=== PATIENT | female | born 1990 | race Caucasian/White ===

== ENCOUNTER 2017-02-12 16:14 | Outpatient (CLI) | payer MEDICAID, OTHER ==
[~2017-02-12] VITALS: Ht 160 cm; Wt 76.5 kg
[2017-02-12 16:31] VITALS: Ht 160 cm; Wt 76.5 kg
[2017-02-12 16:32] VITALS: BP 115/74; PULSE 93; RESP 20
[2017-02-12] MEDS ORDERED: PRENAT PO (16:37)
[2017-02-12] MEDS ORDERED: FERR236T PO (16:38)
--- NOTE | 2017-02-12 17:44 | RADRPT ---
PROCEDURE: US OB biophysical profile. CLINICAL INDICATION: decreased movements, vaginal bleeding TECHNIQUE: Multiple sonographic images of the pelvis were obtained. The images were reviewed on a PACS workstation. COMPARISON: No prior studies are available for comparison. FINDINGS: There is a single viable intrauterine gestation. Cardiac activity is present with 168 beats per min ak chin. There is a vertex presentation. The placenta is fundal. There is no evidence of placental abruption. There is a normal amount of amniotic fluid with an PHILIPP = 15.8 cm. Biophysical profile: movement 2/2 tone 2/2. breathing 2/2 PHILIPP 2/2 Total 04/24 RPTAT: AA . IMPRESSION: Normal biophysical profile. . .Aguilar Dawn MD, Date Time Electronically viewed and signed by .Aguilar Dawn MD, MD on 02/12/2017 17:44 .S/
--- NOTE | 2017-02-12 17:44 | PN ---
Date/Time of Note Date/Time of Note DATE: 02/12/17 TIME: 17:42 OB Subjective Subjective Subjective Patient is a 26-year-old 1 para 0 at 37+4 weeks of gestation who presents with contractions She does not report any leaking fluid, no vaginal bleeding, positive movement She has had her care with [facility] OB Objective HEENT: WNL Heart: Rhythm Normal Lungs: Clear, Equal Abdomen: WNL Extremities: Normal Reflexes: Normal Cervical Dilatation: 2cm Effacement: 75% Station: -2 Membranes: Intact Heart Rate: 140's Accelerations: Accelerations Present Decelerations: No Decelerations Varibility: Moderate Contractions on Admission: >10 Minutes Apart OB Assessment/Plan Other Assessment: 37+4 weeks of gestation rule out labor Other plan: Patient is in latent phase of labor She was counseled to return if contractions are every 3-5 minutes, positive leaking fluid, positive vaginal bleeding or no movement TOM OJEDA MD February 12, 2017 17:44
--- NOTE | 2017-02-12 18:42 | TRIAGE ---
OB Triage Datetime Report Generated by CPN: 02/12/2017 18:42 Datetime: 02/12/2017 16:50 Time of Arrival: 10/15/2016 16:13 EGA: 20.3 Arrived By: Wheelchair Arrived From: Home Chief Complaint: uc's since noon, Movement: Present Contractions: Regular Time Contractions Began: 02/12/2017 12:00 Contractions: "q5" Rupture of Membranes: Denies Vaginal Bleeding: Normal Show; Dark Red Vaginal Discharge: Denies Recent Sexual Intercouse: Denies Abdominal Trauma: Not Applicable Patient Complaints: Contractions Additional Patient Complaints: getting over UTI and finishing up antibiotics presently Time Provider Notified: 02/12/2017 16:45 Provider Notified: laborist Datetime: 02/12/2017 16:41 Stage of : OB Triage Assessment Type: Triage Maternal Assessment Level of Consciousness: Fully Conscious DTR's/Clonus: DTRs 2+; No Clonus Headache: Denies Blurred Vision: No Respiratory Effort: Unlabored; Regular Rhythm; Equal Expansion Breath Sounds, Left: Clear and Equal Breath Sounds, Right: Clear and Equal Nausea/Vomiting: Denies RUQ Epigastric Pain: Denies Lower Extremities Edema: None Upper Extremities Edema: None Facial Edema: None Temperature Route: Axillary Fall Risk Assessment History of Falling: (0) No Secondary Diagnosis: (0) No Ambulatory Aid: (0) Bedrest/Nurse Assist IV Therapy: (0) No Gait: (0) Normal/Bedrest/Immobile Mental Status: (0) Oriented to Own Ability Fall Score: 0 Fall Risk Score Definition: No Risk: No action required Labor Evaluation Monitor Mode: External Resting Tone [place]: Relaxed Contraction Comments: just put on monitor Heart Rate FHR Baseline Rate: 140 Monitor Mode: External US Comments: just put on monitor Pain Assessment Pain Scale: 6 Pain Presence: Intermittent Pain Type: Cramping Pain Location: Abdomen Pain Goal: 3 Pain Relief Measures: Comfort Measures Vaginal Exam Dilatation (cms): 2.0 Effacement (%): 70 Station: -2 Exam By: ami hilton rn Membrane Status: Intact Vaginal Bleeding: old blood noted with exam, pt getting antibiotics presently for a UTI two weeks ago.
== END 2017-02-12 18:40 | disposition home or self-care (01) ==
LOC: OBT 16:14 → L-D 16:15 → OBT 18:40
PROVIDERS: ATTEND Obstetrics & Gynecology
DX: O62.8 Other abnormalities of forces of labor (principal); Z3A.37 37 weeks gestation of pregnancy
CPT/HCPCS: 76818; Z7500; G0463

== ENCOUNTER 2017-02-12 23:39 | Inpatient (IN) | payer OTHER ==
[~2017-02-12] VITALS: Ht 160 cm; Wt 80.0 kg
[~2017-02-12 23:39] MED LIST: FERR236T PO; PRENAT PO
[2017-02-13 00:04] VITALS: BP 137/91; PULSE 82
[2017-02-13 00:36] VITALS: Ht 160 cm; Wt 80.0 kg
[2017-02-13] MEDS: LACTATED RINGER'S 1,000 ML IV SCH ×3 (00:57→16:32)
[2017-02-13 01:00] LABS: ADD SCAN DIFF NO
[2017-02-13] MEDS ORDERED: BUTORPHANOL 2 MG INJ IV PRN (01:00)
[2017-02-13] MEDS ORDERED: AMPICILLIN 2 GM/NS (PMX) 100 ML IV ONE (01:00)
[2017-02-13] MEDS ORDERED: OXYTOCIN 30 UNITS/LR 500 ML IV SCH ×2 (01:00)
[2017-02-13] MEDS ORDERED: CARBOPROST 250 MCG INJ IM PRN ×2 (01:00→02:30)
[2017-02-13] MEDS ORDERED: MISOPROSTOL 200 MCG TAB PR PRN ×2 (01:00→02:30)
[2017-02-13] MEDS ORDERED: LACTATED RINGER'S 1,000 ML IV PRN (01:00)
[2017-02-13] MEDS ORDERED: LIDOCAINE 1% (MPF) 30 ML INJ INJ PRN (01:00)
[2017-02-13] MEDS ORDERED: METHYLERGONOVINE 0.2 MG INJ IM PRN ×2 (01:00→02:30)
[2017-02-13] MEDS ORDERED: OXYTOCIN 30 UNITS/LR 500 ML IV PRN ×2 (01:00→02:30)
[2017-02-13 01:01] LABS: BASOPHILS % 0.2 % (0.0-2.0); EOSINOPHILS % 0.2 % (0.0-7.0); HEMATOCRIT 39.5 % (37.0-47.0); HEMOGLOBIN 13.3 g/dl (12.0-16.0); LYMPHOCYTES # 0.9 10^3/ul (0.8-2.9); LYMPHOCYTES % 7.1 % (15.0-51.0); MEAN CORPUSCULAR HEMOGLOBIN 30.6 pg (29.0-33.0); MEAN CORPUSCULAR HGB CONC 33.7 g/dl (32.0-37.0); MEAN PLATELET VOLUME 10.1 fl (7.4-10.4); MONOCYTE # 0.5 10^3/ul (0.3-0.9); MONOCYTES % 4.1 % (0.0-11.0); NEUTROPHIL # 11.2 10^3/ul (1.6-7.5); NEUTROPHILS % 88.1 % (39.0-77.0); PLATELET COUNT 339 10^3/UL (140-415); RED BLOOD COUNT 4.34 10^6/ul (4.20-5.40); RED CELL DISTRIBUTION WIDTH 13.2 % (11.5-14.5); WHITE BLOOD COUNT 12.7 10^3/ul (4.8-10.8)
[2017-02-13 01:32] LABS: INR 0.87; PROTIME 11.8 Sec (12.2-14.2); PT RATIO 0.9
[2017-02-13 01:49] LABS: ALBUMIN 3.5 g/dl (3.3-4.9); ALBUMIN/GLOBULIN RATIO 0.83; BILIRUBIN,INDIRECT 0.2 mg/dl (0-1.1); BILIRUBIN,TOTAL 0.2 mg/dl (0.2-1.3); CALCIUM 9.5 mg/dl (8.4-10.2); CREATININE 0.49 mg/dl (0.44-1.00); POTASSIUM 3.9 mmol/L (3.5-5.1); TOTAL PROTEIN 7.7 g/dl (6.1-8.1); URIC ACID 4.1 mg/dl (3.1-7.9)
[2017-02-13] MEDS: LACTATED RINGER'S 1,000 ML IV* SCH ×3 (02:13→18:13)
--- NOTE | 2017-02-13 02:13 | LDN ---
Date/Time of Note Date/Time of Note DATE: 02/13/17 TIME: 02:06 Delivery Summary 1 para 0 at 37+5 weeks of gestation presents fully dilated with bulging bag Weeks of Gestation 37+5 weeks of gestation Baby's weight 3030 g/6 lbs. 11 oz. Estimated blood loss 500 cc Patient received 1000 mcg of Cytotec per rectum Placenta Delivered: Spontaneously Anesthesia type: Local Estimated blood loss: 500 Sponge & Needle done & correct: Yes All needle counts correct: Yes Any foreign bodies felt in the: No Problems: Delivery Information Sex Sex: female Apgars 1 Minute: 9 5 Minute: 9 Suctioning Nose & mouth suctioned at kait: Yes Umbilical Cord Umbilical cord with: 3 Vessels Cord presentations: no nuchal cord Cord Blood was obtained: Yes TOM OJEDA MD February 13, 2017 02:13
--- NOTE | 2017-02-13 02:20 | HP ---
Date/Time of Note Date/Time of Note DATE: 02/13/17 TIME: 02:17 OB - History Hx of Present Free Text/Dictation Patient is a 26-year-old 1 para 0 at 37+5 weeks of gestation who presents fully dilated with bulging membranes Patient received care at [facility] : 1 Para: 0 Past Family/Social History * Past Medical, Surgical, Family and Obstetric Histories reviewed from chart. OB Admission Exam Vital Signs Vital Signs Vital Signs Date Time Temp Pulse Resp B/P Pulse Ox O2 Delivery O2 Flow Rate FiO2 02/13/17 00:04 98.3 82 137/91 Room Air Physical Exam HEENT: WNL Heart: Rhythm Normal Lungs: Clear, Equal Abdomen: WNL Extremities: Normal Reflexes: Normal Cervical Dilatation: 10cm Effacement: 100% Station: 0 Amniotic Fluid: Clear Heart Rate: 140's Accelerations: Accelerations Present Decelerations: No Decelerations Varibility: Moderate Contractions on Admission: < 5 Minutes Apart Last 72 hours Lab Results CBC & BMP 02/13/17 00:35 Liver Function Test 02/13/17 00:35 Alanine Aminotransferase (ALT/SGPT) 38 Albumin 3.5 Alkaline Phosphatase 220 H Aspartate Amino Transf (AST/SGOT) 24 Direct Bilirubin 0.00 Total Protein 7.7 OB Assessment/Plan Reason for admission: active labor Other plan: Admit to labor and delivery IV fluids Antibiotics prophylaxis Anticipate normal spontaneous vaginal delivery TOM OJEDA MD February 13, 2017 02:20
[2017-02-13] MEDS ORDERED: WITCH HAZEL/GLYCERIN PAD PR PRN (02:30)
[2017-02-13] MEDS ORDERED: ACETAMINOPHEN 325 MG TAB PO PRN (02:30)
[2017-02-13] MEDS ORDERED: LANOLIN 7 GM TUBE TOP PRN (02:30)
[2017-02-13] MEDS ORDERED: ONDANSETRON 4 MG INJ IV PRN (02:30)
[2017-02-13] MEDS ORDERED: DIBUCAINE 1% 30 GM OINT PR PRN (02:30)
[2017-02-13] MEDS ORDERED: BENZOCAINE 20% 56 ML SPRAY TOP PRN (02:30)
[2017-02-13 03:30] VITALS: BP 118/63; PULSE 89; RESP 19
[2017-02-13 05:01] VITALS: BP 109/70; PULSE 75; RESP 20
[2017-02-13] MEDS: IBUPROFEN 600 MG TAB PO PRN ×3 (06:13→21:33)
[2017-02-13] MEDS: OXYTOCIN 30 UNITS/LR 500 ML IV SCH ×2 (06:13→06:15)
[2017-02-13 07:04] LABS: ADD SCAN DIFF NO
[2017-02-13 07:07] LABS: BASOPHILS % 0.1 % (0.0-2.0); HEMOGLOBIN 11.4 g/dl (12.0-16.0); LYMPHOCYTES # 0.8 10^3/ul (0.8-2.9); LYMPHOCYTES % 5.1 % (15.0-51.0); MEAN CORPUSCULAR HEMOGLOBIN 30.6 pg (29.0-33.0); MEAN CORPUSCULAR HGB CONC 33.5 g/dl (32.0-37.0); MEAN CORPUSCULAR VOLUME 91.4 fl (82.0-101.0); MONOCYTE # 0.6 10^3/ul (0.3-0.9); MONOCYTES % 3.8 % (0.0-11.0); NEUTROPHIL # 14.2 10^3/ul (1.6-7.5); NEUTROPHILS % 90.6 % (39.0-77.0); PLATELET COUNT 279 10^3/UL (140-415); RED BLOOD COUNT 3.72 10^6/ul (4.20-5.40); RED CELL DISTRIBUTION WIDTH 13.3 % (11.5-14.5); WHITE BLOOD COUNT 15.7 10^3/ul (4.8-10.8)
[2017-02-13 07:45] VITALS: BP 98/52; PULSE 86; RESP 18
[2017-02-13] MEDS: SENNA/DOCUSATE NA (8.6MG/50MG) TAB PO SCH ×2 (08:48→21:33)
[2017-02-13] MEDS: MAGNESIUM HYDROXIDE 30ML CUP PO SCH ×2 (08:48→21:33)
[2017-02-13 16:00] VITALS: BP 102/67; PULSE 75; RESP 18
[2017-02-13 19:45] VITALS: BP 108/68; PULSE 79; RESP 17
[2017-02-14] VITALS (7 sets, daily range): BP systolic 97–102; BP diastolic 52–65; PULSE 62–91; RESP 18–20
[2017-02-14] MEDS: IBUPROFEN 600 MG TAB PO PRN ×3 (05:30→23:35)
[2017-02-14] MEDS: SENNA/DOCUSATE NA (8.6MG/50MG) TAB PO SCH ×2 (09:02→20:31)
[2017-02-14] MEDS: MAGNESIUM HYDROXIDE 30ML CUP PO SCH ×2 (09:02→20:31)
--- NOTE | 2017-02-14 16:56 | PN ---
Date/Time of Note Date/Time of Note DATE: 02/14/17 TIME: 16:55 OB Subjective Subjective Subjective Post normal vaginal delivery day 1 Afebrile VSs stable abdomen soft uterus firm lochia normal extremity normal ambulation encouraged Current Medications Medications (Trade) Dose Ordered Sig/Muna Route PRN Reason Start Time Stop Time Status Last Admin Dose Admin Lactated Ringer's 1,000 ml @ 125 mls/hr Q8H IV 02/13/17 00:32 02/13/17 23:32 DC 02/13/17 00:57 Ampicillin (Ampicillin 2 Gm/ NS (Pmx)) 100 ml @ 100 mls/hr ONCE ONCE IV 02/13/17 01:00 02/13/17 10:22 DC 02/13/17 00:57 Butorphanol Tartrate (Stadol) 2 mg Q2H PRN IV PAIN 02/13/17 01:00 Lidocaine 30 ml 30 ml ONCE PRN INJ EPISIOTOMY/TEARING 02/13/17 01:00 Oxytocin/Lactated Ringer's 500 ml @ 125 mls/hr ONCE -MAY REPEAT X1 IV 02/13/17 01:00 02/13/17 23:42 DC Oxytocin/Lactated Ringer's 500 ml @ 125 mls/hr ONCE IV 02/13/17 01:00 02/13/17 23:43 DC 02/13/17 02:05 Ibuprofen 600 mg 600 mg ONCE PRN PO Mild Pain (Pain Score 1-3) 02/13/17 01:00 02/14/17 11:55 Lactated Ringer's 1,000 ml @ 2,000 mls/hr Q30M PRN IV PRE-EPIDURAL BOLUS 02/13/17 01:00 02/13/17 10:22 DC Oxytocin/Lactated Ringer's 500 ml @ 0 mls/hr ONCE PRN IV For Hemorrhage Management 02/13/17 01:00 02/13/17 01:25 Methylergonovine Maleate (Methergine) 0.2 mg ONCE PRN IM VAGINAL BLEEDING 02/13/17 01:00 02/13/17 03:32 Carboprost Tromethamine (Hemabate) 250 mcg ONCE PRN IM VAGINAL BLEEDING 02/13/17 01:00 Misoprostol 1000 mcg 1,[address] VAGINAL BLEEDING 02/13/17 01:00 02/13/17 01:24 Oxytocin/Lactated Ringer's 500 ml @ 125 mls/hr Q4H IV 02/13/17 02:13 02/13/17 10:12 DC 02/13/17 06:15 Lactated Ringer's (Lr) 1,000 ml @ 125 mls/hr Q8H IV* 02/13/17 02:13 02/13/17 23:32 DC Ibuprofen (Motrin) 600 mg Q6 PRN PO PAIN 02/13/17 02:30 02/14/17 05:30 Acetaminophen (Tylenol Tab) 650 mg Q4H PRN PO PAIN LEVEL 1-5 02/13/17 02:30 02/14/17 15:37 Ondansetron HCl (Zofran Inj) 4 mg Q6H PRN IV NAUSEA AND/OR VOMITING 02/13/17 02:30 Senna/Docusate Sodium (Senokot-S) 1 tab BID PO 02/13/17 09:00 02/14/17 09:02 Magnesium Hydroxide (Milk Of Mag) 30 ml Q12 PO 02/13/17 09:00 02/14/17 09:02 Witch Tiffany/ Glycerin (Tucks Pads) [address] MEDICATION PRN CT HEMORRHOID/EPISIOTMY PAIN 02/13/17 02:30 Benzocaine (Dermoplast [place]) 1 spray BEDSIDE MEDICATION PRN TOP HEMORRHOID/EPISIOTMY PAIN 02/13/17 02:30 Dibucaine (Nupercainal) 1 applic BEDSIDE MEDICATION PRN CT HEMORRHOID/EPISIOTMY PAIN 02/13/17 02:30 Lanolin 1 applic 1 applic BEDSIDE MEDICATION PRN TOP BEDSIDE FOR RAD TO NIPPLES 02/13/17 02:30 Oxytocin/Lactated Ringer's 500 ml @ 0 mls/hr ONCE PRN IV For Hemorrhage Management 02/13/17 02:30 Methylergonovine Maleate (Methergine) 0.2 mg ONCE PRN IM VAGINAL BLEEDING 02/13/17 02:30 Carboprost Tromethamine (Hemabate) 250 mcg ONCE PRN IM VAGINAL BLEEDING 02/13/17 02:30 Misoprostol (Cytotec) 1,[address] VAGINAL BLEEDING 02/13/17 02:30 RENATO MILLER MD February 14, 2017 16:56
[2017-02-15 04:00] VITALS: BP 98/60; PULSE 80; RESP 18
[2017-02-15] MEDS: IBUPROFEN 600 MG TAB PO PRN (05:48)
[2017-02-15 08:00] VITALS: BP 92/56; PULSE 64; RESP 18
[2017-02-15] MEDS: SENNA/DOCUSATE NA (8.6MG/50MG) TAB PO SCH (08:42)
[2017-02-15] MEDS: MAGNESIUM HYDROXIDE 30ML CUP PO SCH (08:42)
--- NOTE | 2017-02-15 17:47 | DS ---
Date/Time of Note Date/Time of Note DATE: 02/15/17 TIME: 17:44 Discharge Summary Admission/Discharge Info Admit Date/Time February 13, 2017 at 00:15 Discharge Date/Time February 15, 2017 1300 Final Diagnosis Day 2 post normal vaginal delivery Patient Condition: Good Procedures Normal spontaneous vaginal delivery Hx of Present Illness Term Hospital Course Uneventful satisfactory Home Meds Reported Medications Ferrous Gluconate (Iron) 236 Mg Tablet, 236 MG PO, TAB 02/12/17 Multivit/Min/Fol Ac/Iron/Pren* ( S*) 1 Tab Tab, 1 TAB PO DAILY, TAB 02/12/17 Follow-up Plan Patient discharged home with a follow-up instruction recommended to make appointment to be seen at the clinic in 2 weeks for check Primary Care Provider Care Physician No Primary Time spent on discharge: < 30 minutes RENATO MILLER MD Feb 15, 2017 17:47
--- NOTE | 2017-02-15 17:51 | DS ---
Date/Time of Note Date/Time of Note DATE: 02/15/17 TIME: 17:48 Discharge Summary Admission/Discharge Info Admit Date/Time February 13, 2017 at 00:15 Discharge Date/Time February 15, 2017 Final Diagnosis Day 2 post normal vaginal delivery Patient Condition: Good Procedures Normal spontaneous vaginal delivery Hx of Present Illness Term Hospital Course Uneventful satisfactory Home Meds Reported Medications Ferrous Gluconate (Iron) 236 Mg Tablet, 236 MG PO, TAB 02/12/17 Multivit/Min/Fol Ac/Iron/Pren* ( S*) 1 Tab Tab, 1 TAB PO DAILY, TAB 02/12/17 Follow-up Plan instructions given recommended to make appointment for check in 2 weeks Primary Care Provider Care Physician No Primary Time spent on discharge: < 30 minutes RENATO MILLER MD Feb 15, 2017 17:51
== END 2017-02-15 15:00 | disposition home or self-care (01) | DRG 775 ==
LOC: OBT 23:39 → L-D 23:41 → OBT 02-13 00:15 → L-D 02-13 00:15 → PP1 02-13 03:19
PROVIDERS: ADMIT Obstetrics & Gynecology; ATTEND Obstetrics & Gynecology
PROC: 10E0XZZ Delivery of Products of Conception, External Approach (ICD-10-PCS; principal; 2017-02-13)
DX: O80 Encounter for full-term uncomplicated delivery (principal); Z37.0 Single live birth; Z3A.37 37 weeks gestation of pregnancy
CPT/HCPCS: 80053; 84560; 85025; 85610; 85730; 86592; 86900; 86901; 87340; G0463; J0290; J2210; J2590; J7120

== ENCOUNTER 2018-06-12 22:12 | Inpatient (IN) | END 2018-06-15 12:28 | disposition home or self-care (01) | DRG 781 ==

== ENCOUNTER 2018-08-06 05:30 | Inpatient (IN) | END 2018-08-08 14:45 | disposition home or self-care (01) | DRG 807 ==